=== PATIENT | female | born 1990 | race Caucasian/White ===

== ENCOUNTER 2020-10-19 07:29 | Day surgery (SDC) | payer BC ==
[~2020-10-19] VITALS: Ht 157.5 cm; Wt 97.8 kg
[~2020-10-19 07:29] MED LIST: BUPR150T22 PO; FEXO180T72 PO; FLUO20TA25 PO; SUMA50TA4 PO; TRAZ50TA66 PO
[2020-10-19 08:21] VITALS: BP 127/85
[2020-10-19 08:26] LABS: HCG UR SG 1.023 (1.003-1.030)
[2020-10-19] MEDS ORDERED: LACTATED RINGERS 1,000 ML IV SCH (08:30)
[2020-10-19] MEDS ORDERED: CHLORHEXIDINE 15 ML UDC PO ONE (08:30)
[2020-10-19] MEDS ORDERED: FENTANYL PF 250 MCG/5ML ONE (09:23)
[2020-10-19] MEDS ORDERED: MIDAZOLAM 1 MG/ML, 2ML ONE (09:23)
[2020-10-19] MEDS ORDERED: ACET325T14 PO (09:29)
[2020-10-19] MEDS ORDERED: IBUP-1222 PO (09:29)
[2020-10-19] MEDS ORDERED: OXYC5TAB2 PO (09:29)
[2020-10-19] MEDS ORDERED: SENN-99 PO (09:29)
[2020-10-19] MEDS ORDERED: KETOROLAC 30 MG/1 ML ONE (09:30)
[2020-10-19] MEDS ORDERED: METOCLOPRAMIDE 5 MG/ML, 2ML ONE (09:30)
[2020-10-19] MEDS ORDERED: ESMOLOL 100 MG/10 ML ONE (09:30)
[2020-10-19] MEDS ORDERED: ONDANSETRON 2MG/ML, 2ML ONE (09:30)
[2020-10-19] MEDS ORDERED: PROPOFOL 10 MG/ML, 20ML ONE (09:30)
[2020-10-19] MEDS ORDERED: SUCCINYLCHOLINE 20 MG/ML, 10ML ONE (09:30)
[2020-10-19] MEDS ORDERED: DEXAMETHASONE 4 MG/ML, 1ML ONE (09:30)
[2020-10-19] MEDS ORDERED: ACETAMINOPHEN 650 MG/20.3 ML UDC ONE (10:25)
[2020-10-19] MEDS ORDERED: OXYcodone 5 MG/5 ML ORAL.SOL UDC ONE (10:25)
[2020-10-19] MEDS ORDERED: MEPERIDINE/PF 25MG/0.5ML IVPush PRN (10:30)
[2020-10-19] MEDS ORDERED: METHOCARBAMOL 1,000 MG in DEXTROSE 5% 100 ML IV PRN (10:30)
[2020-10-19] MEDS ORDERED: ACETAMINOPHEN 325 MG TABLET PO PRN (10:30)
[2020-10-19] MEDS ORDERED: ONDANSETRON 2MG/ML, 2ML IVPush PRN (10:30)
[2020-10-19] MEDS ORDERED: LABETALOL 5MG/ML, 20ML IV PRN (10:30)
[2020-10-19] MEDS ORDERED: LORazepam 2 MG/ML, 1ML IVPush PRN (10:30)
[2020-10-19] MEDS ORDERED: FENTANYL PF 100 MCG/2ML IV PRN (10:30)
[2020-10-19] MEDS ORDERED: hydrALAzine 20 MG/ML, 1ML IV PRN (10:30)
[2020-10-19] MEDS ORDERED: EPHEDRINE 50 MG/ML, 1ML IVPush PRN (10:30)
[2020-10-19] MEDS ORDERED: PROMETHAZINE 25 MG/ML, 1ML IVPush PRN (10:30)
[2020-10-19] MEDS ORDERED: OXYcodone 5 MG/5 ML ORAL.SOL UDC PO PRN (10:30)
[2020-10-19] MEDS ORDERED: HYDROmorphone 1 MG/ML, 1ML INJ IVPush PRN (10:30)
== END 2020-10-19 12:30 | disposition home or self-care (01) ==
LOC: OUT 07:29
PROVIDERS: ATTEND Otolaryngology
DX: J35.01 Chronic tonsillitis (principal); F41.9 Anxiety disorder, unspecified; F32.9 Major depressive disorder, single episode, unspecified; G43.909 Migraine, unspecified, not intractable, without status migrainosus; Z20.822 Contact with and (suspected) exposure to COVID-19; Z91.018 Allergy to other foods; Z91.048 Other nonmedicinal substance allergy status; Z82.49 Family history of ischemic heart disease and other diseases of the circulatory system
CPT/HCPCS: 42826; 81025; 88304; J0330; J1100; J1885; J2250; J2405; J2704; J2765; J3010; J7120; U0003; U0005; 88305

== ENCOUNTER 2020-10-27 00:41 | Emergency (ER) | payer BC ==
[~2020-10-27] VITALS: Ht 157.5 cm; Wt 96.3 kg
[~2020-10-27 00:41] MED LIST changes: +ACET325T14 PO; +IBUP-1222 PO; +OXYC5TAB2 PO; +SENN-99 PO
--- NOTE | 2020-10-27 01:54 | NUR ---
[facility] ARCHITECT: PT. TO ROOM FROM LOBBY AT THIS TIME.
--- NOTE | 2020-10-27 02:00 | NUR ---
PT PRESENTS TO ED AFTER A TONSILECTOMY 1 WEEK AGO. PT STATES THE SITE ON THE RIGHT SIDE HAS BEEN BLEEDING ON AND OFF AGAIN THIS WHOLE PAST WEEK, PT STATES THIS LAST TIME IT BLED FOR 45 MINS AT HOME. PT STATES THAT WHEN SHE IS BREATHING THE SITE FEELS LIKE IT IS DRYING OUT. PT RESTING ON GURNEY AND PLACED ON CONTINUOUS MONITORING.
[2020-10-27 02:01] VITALS: BP 126/83
--- NOTE | 2020-10-27 02:42 | NUR ---
Patient/Caregiver given discharge instructions and they have confirmed that they understand the instructions. Patient ambulatory with steady gait.
== END 2020-10-27 02:44 | disposition home or self-care (01) ==
LOC: ED 01:45
DX: J95.830 Postprocedural hemorrhage of a respiratory system organ or structure following a respiratory system procedure (principal); R00.0 Tachycardia, unspecified; Z90.89 Acquired absence of other organs
CPT/HCPCS: 99281